=== PATIENT | female | born 1975 | race Two or more races ===

== ENCOUNTER 2018-06-01 13:12 | Observation (INO) | payer BC ==
[~2018-06-01] VITALS: Ht 167.6 cm; Wt 78.6 kg
[2018-06-01 13:41] LABS: BASOPHILS # (AUTO) 0.05 x10^3/uL (0-0.1); BASOPHILS % (AUTO) 1 % (0-1); EOSINOPHILS # (AUTO) 0.11 x10^3/uL (0-0.4); EOSINOPHILS % (AUTO) 1 % (1-7); LYMPHOCYTES # (AUTO) 2.34 x10^3/uL (1-3.4); LYMPHOCYTES % (AUTO) 29 % (22-44); MD NO; MEAN CORPUSCULAR HEMOGLOBIN 30.7 pg (27.0-34.8); MEAN CORPUSCULAR HGB CONC 33.5 g/dL (32.4-35.8); MEAN CORPUSCULAR VOLUME 91.5 fL (80-100); MEAN PLATELET VOLUME 8.2 fL (7.4-10.4); MONOCYTES # (AUTO) 0.41 x10^3/uL (0.2-0.8); MONOCYTES % (AUTO) 5 % (2-9); NEUTROPHILS # (AUTO) 5.09 x10^3/uL (1.8-6.8); NEUTROPHILS % (AUTO) 64 % (42-75); PLATELET COUNT 391 x10^3/uL (130-400); RED BLOOD COUNT 4.66 x10^6/uL (3.82-5.3); RED CELL DISTRIBUTION WIDTH 14.4 % (9.6-15.2)
[2018-06-01 13:51] LABS: ALBUMIN 4.2 g/dL (3.4-5.0); ANION GAP 5 mmol/L (5-15); CALCIUM 8.6 mg/dL (8.5-10.1); CHLORIDE 110 mmol/L (98-107)
[2018-06-01 13:54] LABS: TROPONIN I < 0.015 ng/mL (0.000-0.045)
--- NOTE | 2018-06-01 14:13 | NUR ---
CONNECTED TO SE[employer] OPERATOR
--- NOTE | 2018-06-01 14:55 | NUR ---
SBAR report received from RN, Jean Claude.
[2018-06-01] MEDS ORDERED: OMEP-110 PO (15:10)
--- NOTE | 2018-06-01 15:20 | NUR ---
EDT at bedside to start PIV, pt aware of plan to admit.
--- NOTE | 2018-06-01 15:40 | NUR ---
[facility] at bedside to evaluate pt for admission.
[2018-06-01] MEDS ORDERED: BISACODYL 10 MG SUPP PR PRN (16:00)
[2018-06-01] MEDS ORDERED: ENOXAPARIN 40 MG/0.4 ML SQ SCH (16:00)
[2018-06-01] MEDS ORDERED: MORPHINE SULFATE 4 MG/ML, 1ML IVPush PRN (16:00)
[2018-06-01] MEDS ORDERED: ACETAMINOPHEN 325 MG TABLET PO PRN (16:00)
[2018-06-01] MEDS ORDERED: LABETALOL 5MG/ML, 20ML IVPush PRN (16:00)
[2018-06-01] MEDS ORDERED: POLYETHYLENE GLYCOL 17 GM PACKET PO PRN (16:00)
[2018-06-01] MEDS ORDERED: NITROGLYCERIN 0.4 MG BOTTLE (25 TABS) SL PRN (16:00)
[2018-06-01] MEDS ORDERED: DOCUSATE 100 MG CAPSULE PO PRN (16:00)
[2018-06-01] MEDS ORDERED: ONDANSETRON 2MG/ML, 2ML IVPush PRN (16:00)
--- NOTE | 2018-06-01 17:20 | NUR ---
Pt resting on gurney, aware of plan for admit. Pt remains on all monitors, NSR noted.
--- NOTE | 2018-06-01 17:32 | NUR ---
Telephone SBAR report given to Lisa BARNETT. Pt made aware of new room assignment.
[2018-06-01 17:55] VITALS: BP 126/85
[2018-06-01 18:31] LABS: TROPONIN I < 0.015 ng/mL (0.000-0.045)
[2018-06-01 20:00] VITALS: BP 116/71
[2018-06-01] MEDS: SODIUM CHLORIDE FLUSH 10ML SYR IVF SCH (21:00)
[2018-06-01 21:23] VITALS: BP 116/71
[2018-06-02 00:57] LABS: TROPONIN I < 0.015 ng/mL (0.000-0.045)
[2018-06-02 01:28] VITALS: BP 108/71
[2018-06-02 05:43] LABS: CHOL/HDL RATIO 3.3; LDL/HDL RATIO 1.7 (0.5-3.0); THYROID STIMULATING HORMONE 2.62 mIU/L (0.358-3.740)
[2018-06-02] MEDS ORDERED: ASPIRIN 325 MG TABLET EC PO SCH (06:00)
[2018-06-02 07:32] VITALS: BP 106/72
[2018-06-02] MEDS: SODIUM CHLORIDE FLUSH 10ML SYR IVF SCH (09:00)
[2018-06-02 12:20] VITALS: BP 97/68
== END 2018-06-02 17:00 | disposition home or self-care (01) ==
LOC: ED 14:09 → INTOOBSV 15:02 → EDIP 15:02 → 5SO 17:47 → DCLOUNGE 06-02 16:50
PROVIDERS: ADMIT Internal Medicine; ATTEND Internal Medicine
DX: R07.89 Other chest pain (principal); R73.9 Hyperglycemia, unspecified; J45.909 Unspecified asthma, uncomplicated; Z79.890 Hormone replacement therapy; Z82.41 Family history of sudden cardiac death; Z82.49 Family history of ischemic heart disease and other diseases of the circulatory system; Z83.3 Family history of diabetes mellitus
CPT/HCPCS: 36415; 71045; 78452; 80048; 80061; 82040; 84443; 84484; 84703; 85025; 85379; 93005; 93017; 93306; 96372; 99284; A9502; C9898; G0378; J1650; 99285

== ENCOUNTER 2019-05-11 13:37 | Emergency (ER) | payer BC ==
[~2019-05-11] VITALS: Ht 167.6 cm; Wt 72.0 kg
[~2019-05-11 13:37] MED LIST: OMEP-110 PO
--- NOTE | 2019-05-11 14:29 | NUR ---
PT C/O LUQ PAIN X3 DAYS. PT FEELS BOWEL MOVEMENT MOVING IN LUQ. PT CAN FEEL LUQ PAIN WHEN WALKING AND REACHING. HX DIVERTICULITIS, 7 YEARS AGO. CONNECTED TO MONITORING. CALL LIGHT IN REACH. AWAITING ORDERS AT THIS TIME.
[2019-05-11] MEDS ORDERED: SODIUM CHLORIDE FLUSH 10ML SYR IVF ONE (15:00)
[2019-05-11 15:04] LABS: BASOPHILS # (AUTO) 0.05 x10^3/uL (0-0.1); BASOPHILS % (AUTO) 1 % (0-1); EOSINOPHILS # (AUTO) 0.09 x10^3/uL (0-0.4); EOSINOPHILS % (AUTO) 1 % (1-7); LYMPHOCYTES # (AUTO) 2.35 x10^3/uL (1-3.4); LYMPHOCYTES % (AUTO) 28 % (22-44); MD NO; MEAN CORPUSCULAR HEMOGLOBIN 29.6 pg (27.0-34.8); MEAN CORPUSCULAR HGB CONC 33.1 g/dL (32.4-35.8); MEAN CORPUSCULAR VOLUME 89.4 fL (80-100); MEAN PLATELET VOLUME 8.4 fL (7.4-10.4); MONOCYTES # (AUTO) 0.47 x10^3/uL (0.2-0.8); MONOCYTES % (AUTO) 6 % (2-9); NEUTROPHILS # (AUTO) 5.46 x10^3/uL (1.8-6.8); NEUTROPHILS % (AUTO) 65 % (42-75); PLATELET COUNT 364 x10^3/uL (130-400); RED BLOOD COUNT 4.49 x10^6/uL (3.82-5.3); RED CELL DISTRIBUTION WIDTH 16.1 % (9.6-15.2)
[2019-05-11 15:13] LABS: ALANINE AMINOTRANSFERASE 13 U/L (12-78); ALBUMIN 3.4 g/dL (3.4-5.0); ANION GAP 9 mmol/L (5-15); CALCIUM 8.4 mg/dL (8.5-10.1); CHLORIDE 106 mmol/L (98-107); CREATININE 0.85 mg/dL (0.55-1.02)
[2019-05-11 15:18] LABS: ALKALINE PHOSPHATASE 53 U/L (45-117); BILIRUBIN,TOTAL 0.3 mg/dL (0.2-1.0); TOTAL PROTEIN 7.7 g/dL (6.4-8.2)
--- NOTE | 2019-05-11 15:25 | NUR ---
PT AMBULATED TO RESTROOM WITH STEADY GAIT AND PROVIDED URINE SAMPLE. UA COLLECTED AND SENT TO LAB.
[2019-05-11 15:38] LABS: MICROSCOPIC NOT IND
[2019-05-11 15:42] LABS: CULTURE INDICATED? NO
[2019-05-11] MEDS ORDERED: SODIUM CHLORIDE 0.9% 1,000ML IVBOLUS ONE (16:00)
[2019-05-11] MEDS ORDERED: SODIUM CHLORIDE 0.9% 1,000 ML IV ONE (16:00)
--- NOTE | 2019-05-11 16:29 | NUR ---
PT AT CT
[2019-05-11] MEDS ORDERED: OMNIPAQUE 350 MG/ML, 100ML BOTTLE ONE (16:47)
[2019-05-11 16:52] VITALS: BP 110/64
--- NOTE | 2019-05-11 16:52 | NUR ---
PT BACK FROM CT.
--- NOTE | 2019-05-11 17:00 | NUR ---
ALL RESULTS ARE BACK AT THIS TIME. CHART UP FOR RECHECK.
--- NOTE | 2019-05-11 17:09 | NUR ---
MD AT BEDSIDE TO UPDATE PT ON POC.
== END 2019-05-11 17:53 | disposition home or self-care (01) ==
LOC: ED 14:34
DX: N83.292 Other ovarian cyst, left side (principal); R10.12 Left upper quadrant pain; R10.32 Left lower quadrant pain
CPT/HCPCS: 36415; 74177; 80053; 81003; 83605; 83690; 84703; 85025; 93005; 96360; 96361; 99284; J7030; Q9967

== ENCOUNTER 2020-01-09 14:19 | Outpatient (CLI) | payer BC | END 2020-01-09 23:59 | disposition home or self-care (01) | LOC: CFH 14:19 | PROVIDERS: ATTEND Obstetrics & Gynecology | DX: R92.2 Inconclusive mammogram (principal); N83.202 Unspecified ovarian cyst, left side | CPT/HCPCS: 76641; 76830; 77063; 77067 ==